=== PATIENT | female | born 1980 | race Caucasian/White ===

== ENCOUNTER 2017-02-26 01:45 | Observation (INO) | payer OTHER ==
[~2017-02-26] VITALS: Ht 172.7 cm; Wt 102.0 kg
[2017-02-26] VITALS (13 sets, daily range): BP systolic 93–128; BP diastolic 54–82; PULSE 62–111; RESP 12–21; O2SAT 92–100
--- NOTE | 2017-02-26 01:59 | ED.REPORT ---
HPI-Abd Pain F Under 40 Date of Service Feb 26, 2017 ED Provider: John Steen MD Patient is a healthy 36 year old female who presents to the ED complaining of RLQ abdominal pain onset 7pm this evening. The patient radiates to her periumbilical region. She reports associated nausea, vomiting 2x, and diarrhea. Her stools have unusually loose for the past week. The patient is not currently , as she is on her period. She denies fever, hematemesis, hematochezia, dysuria, urinary urgency, or increased urinary frequency. The patient has previously had a but any other previous abdominal surgeries. Patient denies having pain like this previously. Nursing Notes Stated Complaint: ABDOMINAL PAIN Chief Complaint: Female Abdominal Pain Nursing Notes Reviewed: Yes Allergies: Coded Allergies: No Known Allergies (Unverified , 02/26/17) General Time Seen by MD: 01:59 Chief Complaint Abdominal pain Hx Obtained From: Patient Arrived By: Walk-in Sudden in Onset?: Yes Onset Occurred: 5 - 8 hours ago Symptom Duration: Since onset Progression since Onset: Gradually worsening Location: : RLQ Quality: Painful Severity: Current: Moderate Severity: Maximum: Moderate Recent Healthcare: No recent doctor visit, No recent hospitalization Similar Sx Previous: No Past Medical History Past Medical History none Denies: Diabetes mellitus Past Surgical History Reports: Smoking History Unknown if Ever Smoker Social History Alcohol Use: "Social" Other Social History: Good social support, , Local resident Ambulatory Status Independent Review of Systems Constitutional: Denies: Chills, Fever GI: Reports: Abdominal pain, Diarrhea, Nausea, Vomiting, Denies: Bloody/tarry stool, Hematemesis, Hematochezia Female: Denies: Dysuria, Urinary frequency, Urinary urgency, Vaginal bleeding - abnl Complete sys rev & neg: except as marked. Physical Exam Initial Vital Signs Vital Signs (First) Date Time Temp Pulse Resp B/P Pulse Ox O2 Delivery O2 Flow Rate FiO2 02/26/17 01:46 36.9 98 14 123/80 100 Room Air Initial VS: Reviewed Head / Eyes: Atraumatic, Normocephalic, PERRL ENT: Mucous membranes moist, Conjunctiva normal, No scleral icterus Neck: Supple, Full range of motion Extremities: Vascular intact, Neuro intact, No swelling, No tenderness Skin: Warm, Dry, No cyanosis Neurologic: Alert, Oriented, Nonfocal Psychiatric: Mood/affect normal, Behavior normal, Normal thought content General/Constitutional: Awake, Alert, No acute distress, Well hydrated Respiratory / Chest: Breath sounds NL, Breath sounds = bilat, No respiratory distress, No rales, No rhonchi, No wheezing Cardiovascular: Heart rate NL, Regular rhythm, Heart sounds NL, No murmurs Abdomen: Soft, BS normoactive Tenderness/Guarding/Rebound: Positive: Tender RLQ... (quite tender and reactive to palpation) Back: No midline vertebral tend, No CVA tenderness Interpretation & Diagnostics Lab Results Interpretation Result Diagram: 02/26/17 0155 02/26/17 0155 Test 02/26/17 01:55 White Blood Count 13.9th/mm3 (3.8-10.1) Red Blood Count 4.72mil/mm3 (3.90-5.20) Hemoglobin 14.1g/dL (12.0-15.6) Hematocrit 42.2% (35.0-46.0) Mean Corpuscular Volume 89.4fL (81-100) Mean Corpuscular Hemoglobin 29.9pg (27.0-35.0) Mean Corpuscular Hemoglobin Concent 33.4% (32.0-37.0) Red Cell Distribution Width 13.0% (12.3-15.4) Platelet Count 213bil/L (150-400) Neutrophils (%) (Auto) 88.8% (40-74) Lymphocytes (%) (Auto) 6.1% (14-46) Monocytes (%) (Auto) 4.8% (4-12) Eosinophils (%) (Auto) 0% (0-5) Basophils (%) (Auto) 0.1% (0-3) Hold Purple Top Tube Received (Received) Prothrombin Time 10.4sec (8.1-12.5) Prothromb Time International Ratio 0.97ratio Hold Blue Top Tube Received (Received) Urine Color Yellow (YELLOW) Urine Appearance Cloudy (CLEAR,HAZY) Urine pH 6.5 (5.0-8.0) Urine Specific [place] 1.020 (1.003-1.035) Urine Protein Negativemg/dL (NEG,TRACE) Urine Glucose (UA) Negativemg/dL (NEGATIVE) Urine Ketones Negativemg/dL (NEGATIVE) Urine Occult Blood Small (NEGATIVE) Urine Nitrite Negative (NEGATIVE) Urine Bilirubin Negative (NEGATIVE) Urine Urobilinogen Normalmg/dL (NORMAL) Urine Leukocyte Esterase Negative (NEGATIVE) Urine RBC 0-2/hpf (0-2) Urine WBC 0-5/hpf (0-5) Urine Epithelial Cells Few/hpf (NONE-MOD) Urine Crystals Amorphous urates (NONE Urine Bacteria Few/hpf (NONE-FEW) Urine Hyaline Casts None/lpf (NONE) Urine Granular Casts None seen (NONE SEEN) Urine Waxy Casts None seen (NONE SEEN) Urine Red Blood Cell Casts None seen (NONE SEEN) Urine White Blood Cell Casts None seen (NONE SEEN) Urine Mucus Present (None Seen) Urine Trichomonas None seen (NONE SEEN) Urine Yeast None (NONE SEEN) Urinalysis Comment None Urine Culture Reflexed Not indicated Hold Urine Received (Received) Sodium Level 136mEq/L (134-144) Potassium Level 3.8mEq/L (3.5-5.2) Chloride Level 98mEq/L (97-108) Carbon Dioxide Level 22mmol/L (18-29) Blood Urea Nitrogen 14mg/dL (6-20) Creatinine 0.67mg/dL (0.57-1.00) Estimat Glomerular Filtration Rate 141mL/min (>59) Glucose Level 145mg/dL (60-99) Lactic Acid Level 1.1mmol/L (0.4-2.0) Calcium Level 10.9mg/dL (8.5-10.1) Total Bilirubin 0.4mg/dL (0.0-1.2) Aspartate Amino Transf (AST/SGOT) 19U/L (0-50) Alanine Aminotransferase (ALT/SGPT) 14U/L (0-32) Alkaline Phosphatase 80U/L (25-150) Total Protein 8.9g/dL (6.4-8.4) Albumin 4.4g/dL (3.4-5.0) Lipase 39U/L (13-60) Hold [place] Top Tube Received (Received) Hold [place] Top Tube Received (Received) CT Abd / Pelvis Interpretation CONCLUSION: Acute appendicitis. No abscess. Radiologist: Jesus Beavers MD 02/26/2017 - 3:29:03 AM PDT Study type: Abdominal CT IV contrast Interpretation / Wet Read by: Interpret - Radiologist, Tigist w radiologist Re-Eval/Medical Decision Med Decision/Clinical Course Med Decision/Clinical Course: 36-year-old female status post been no prior abdominal surgeries otherwise, presents with right lower quadrant pain for the past eight hours. She is quite tender in that area, and CT documents appendicitis with an appendicolith but no perforation and no abscess. Admitted now to the surgical service. IV Zosyn given. Transported in stable condition. Re-Evaluation/Progress : Time of Eval: 03:32 Patient Status: Condition improved Re-Evaluation/Progress Note: Rechecked the patient, who was informed that she has appendicitis. Patient states that her pain is improved and she declines additional pain medication. Patient will be admitted to the hospital for surgery. Patient understands and agrees with this plan. All questions were addressed. Consultation : Referral / Consult Name: Antione Cota MD Consulted With: Surgeon Call Returned at: 03:32 Director Mba: Will see patient, Agrees with eval, Agrees with plan, Accepts admit Note: Spoke with Dr. Cota, surgeon, who agrees to accept admit. Counseled Regarding: Diagnosis, Lab results, Need for admission Discharge & Departure Primary Impression: Acute appendicitis Acute appendicitis type: unspecified acute appendicitis type Qualified Code: K35.80 - Unspecified acute appendicitis Disposition: ADMITTED TO HOSPITAL Discharge Condition All VS Reviewed: Yes Condition: Stable Scribe Attestation Portions of this note were transcribed by Chinyere Jhaveri. I, Dr. Steen personally performed the history, physical exam and medical decision-making; I reviewed and confirmed the accuracy of the information in the transcribed note. Signed by: Jared Hartmann, 02/26/2017 0337 John Steen MD Feb 26, 2017 01:59 Chinyere Jhaveri Feb 26, 2017 02:07
[2017-02-26] MEDS ORDERED: 0.9% Sodium Chloride 1,000 ML IV ONE (02:06)
[2017-02-26] MEDS ORDERED: Ondansetron 2 mg/mL 2 mL Inj IVPUSH ONE (02:10)
[2017-02-26 02:13] LABS: BASOPHILS % (AUTO) 0.1 % (0-3); EOSINOPHILS % (AUTO) 0 % (0-5); MONOCYTES % (AUTO) 4.8 % (4-12); Mean Corpuscular Hemoglobin 29.9 pg (27.0-35.0); Mean Corpuscular Volume 89.4 fL (81-100); NEUTROPHILS % (AUTO) 88.8 % (40-74); Platelet Count 213 bil/L (150-400)
[2017-02-26 02:18] LABS: APPEARANCE,URINE CLOUDY (CLEAR,HAZY); COLOR,URINE YELLOW (YELLOW); OCCULT BLOOD,URINE SMALL (NEGATIVE); PH,URINE 6.5 (5.0-8.0); UROBILINOGEN,URINE NORMAL (NORMAL)
[2017-02-26 02:27] LABS: INR 0.97 ratio
[2017-02-26] MEDS ORDERED: Piperacillin-Tazo 3.375 Gm Inj 3.375 GM in Dextrose 5% Minibag Plus 50 ML IV ONE ×2 (03:30→11:00)
[2017-02-26] MEDS ORDERED: HYDROmorphone PCA 0.2 mg/mL 30 mL Inj IV PRN (03:40)
[2017-02-26] MEDS ORDERED: Ondansetron 2 mg/mL 2 mL Inj IVPUSH PRN ×4 (03:40→13:25)
[2017-02-26] MEDS ORDERED: Ketamine 10 mg/mL 20 mL Inj ONE (04:03)
[2017-02-26] MEDS ORDERED: fentaNYL-PF 50 mCg/mL 2 mL Inj ONE (04:03)
[2017-02-26] MEDS ORDERED: Dexamethasone 4 mg/mL Inj ONE (04:03)
[2017-02-26] MEDS ORDERED: Ondansetron 2 mg/mL 2 mL Inj ONE (04:03)
[2017-02-26] MEDS ORDERED: Propofol 10,000 mCg/mL 20 mL Inj ONE (04:03)
[2017-02-26] MEDS: Lactated Ringer's 1,000 ML IV SCH ×3 (04:15→18:48)
[2017-02-26] MEDS ORDERED: Influenza (Adult) Vaccine 0.5 mL Syringe IM ONE ×2 (07:00→15:55)
--- NOTE | 2017-02-26 07:53 | DRSVH ---
PROCEDURE: CT ABDOMEN AND PELVIS WITH CONTRAST ([id number]) INDICATIONS: rlq abdo pain TECHNIQUE: After the administration of oral and intravenous contrast, 5 mm thick sections acquired from the diap hragms to the symphysis. 5 mm thick coronal and sagittal reformats were performed. For radiation do se reduction, the following was used: automated exposure control, adjustment of mA and/or kV accordi ng to patient size. COMPARISON: None. FINDINGS: Image quality: Excellent. ABDOMEN: Lung bases: Lung bases are clear. Heart size is normal. Solid organs: Liver and spleen are normal in size and enhancement. Gallbladder is within normal joel its. Biliary system is non-dilated. Pancreas enhances normally. No adrenal nodules. Kidneys are n ormal in size and enhancement, without hydronephrosis. Peritoneum and bowel: A small hiatal hernia is present. Stomach, small bowel, and colon loops are no rmal in caliber and wall thickness. No free fluid or air. The appendix is distended and fluid-fille d and demonstrates mild surrounding fat stranding. A few small, less than 5 mm diameter high density foci within the appendiceal lumen are present. Nodes and vessels: No retroperitoneal or mesenteric adenopathy. Aorta and inferior vena cava are no rmal in caliber. Miscellaneous: No ventral hernias. PELVIS: Genitourinary: The urinary bladder is decompressed Miscellaneous: No inguinal hernias or adenopathy. Bones: No suspicious bony lesions. No vertebral body compression fractures. IMPRESSION: 1. Acute appendicitis. Small appendicoliths. 2. Findings were discussed with Dr. Steen by [facility] radiology services on 02.26.17 at 0329 hrs. 3. Concordant with preliminary interpretation. Dictated by: Adolfo Cavazos M.D. on 02/26/2017 at 7:50 Approved by: Adolfo Cavazos M.D. on 02/26/2017 at 7:51
--- NOTE | 2017-02-26 10:05 | PCM.HPANE ---
Patient Data Surgeon Admitting Provider:Antione Cota MD Attending Provider:Antione Cota MD Primary Care Physician:Katie Other Provider:Milvia Braningham Anesthesia Reason for Visit Acute Appendicitis Ht/WT & BMI Height (Feet): 5 Height (Inches): 8.00 Weight (Kilograms): 101.400 Body Mass Index 33.88 Allergies Coded Allergies: No Known Allergies (Unverified , 02/26/17) Past Anesthesia History Anesthesia History: Positive for:: Anesthesia Reactions (N/V, ? prolonged emergence), Denies:: Abnormal Airway, Difficult Intubation Diabetes History Hx Diabetes?: No Current Bedside Blood Glucose: 109 MRSA MRSA: No Medications Hypertension Medication: No Home Meds Incl Beta Rita: No Active Scripts oxyCODONE 5 Mg Tablet5 Mg PO Q4H PRN For Moderate Pain #15 TABLET Prov:Gene Monroe PA-C 02/27/17 History History of ENT Problems?: No HEENT History: Denies:: Abnormal Airway Difficult Intubation Hx of Heart Problems?: No Cardiovascular History: Denies:: Congestive Heart Failure Hypertension Hx of Respiratory Problem?: No Respiratory History: Denies:: Tuberculosis Neurological History: Positive for:: Headaches Hx of GI Problems?: No Other GI Pertinent History: Patient denies N/V Hx of Problems?: No Genitourinary History: Denies:: HX of Hemodialysis Kidney Stones Urinary Tract Infection HX of Peritoneal Dialysis: No Female Hx: Denies:: Currently Endometriosis Pelvic Inflammatory Problems with Breasts? Musculoskeletal History: Positive for:: Back Injury (current minor back injury ) Hx of Psycho/Social Problems?: No Hx Surgeries?: Yes (Tonsils) Other History: Positive for:: Hospitalization (Tonsils) Thyroid Disease History Blood Transfusions: Positive for:: Accept Blood Products? Denies:: Blood Transfuse Reaction Blood Transfusions Hx Diabetes: NoBedside Blood Glucose: 109 Hx Alcohol Use: NoHx Substance Use: No Smoking Status: Unknown if Ever Smoker Have You Smoked inLast 12 mo: No Stop/Bang Treated for Sleep Apnea?: No Do You Have a CPAP Machine?: No S-Snoring: Do You Snore Loudly: No T-Tired: feel tired, fatigued: No O-Obsered: Observed not breath: No P-Blood Pressure: treated: No B- Body Mass Index > 35 kg/m2: No A- Age over 50: No N- Neck Large Circumference: No G- Gender Male: No BRYAN Total Score: 0 BRYAN Risk Assessment: Low Risk, <3 Yes Risk Assessment Category Category 1A: Patient has history of documented sleep apnea, and HAS NOT received any narcotic, sedative or anesthesia administration during this stay. Category 1B: Patient has history of documented sleep apnea, and HAS received any narcotic , sedative or anesthesia administration during this stay Category 2: Patient has SUSPECTED Obstructive Sleep Apnea, and HAS received any narcotic , sedative or anesthesia administration during this stay. Category 3: Patient has SUSPECTED Obstructive Sleep Apnea and HAS NOT received narcotic, sedative or anesthesia administration during this stay. Category 4: Outpatient in Procedural Areas with known sleep apnea or who screen positive for High Risk via the STOP/BANG questionnaire. Exam Exam Vital Signs Vital Signs Date Time Temp Pulse Resp B/P Pulse Ox O2 Delivery O2 Flow Rate FiO2 02/26/17 06:55 16 94 02/26/17 06:19 36.4 98 18 125/75 98 Room Air 02/26/17 04:11 36.7 111 16 128/82 99 Room Air General Appearance: Alert, Oriented X3, Cooperative, No Acute Distress HEENT/AIRWAY: MP 2 Lungs: Clear to Auscultation, Normal Air Movement Heart: Exam Unremarkable, Regular Rate/Rhythm, No Murmurs/Rubs/Gallops Meds/Labs/Diagnostics Admission Meds Current Medications Sodium Chloride (Normal Saline) 1,000 ml @ 0 mls/hr Q0M ONCE IV Last administered on 02/26/17 02:33; Start 02/26/17 at 02:06; Stop 02/26/17 at 02:09; Status DC Ondansetron HCl (Zofran Inj) 8 mg ONCE ONCE IVPUSH Last administered on 02:34; Start 02/26/17 at 02:10; Stop 02/26/17 at 02:11; Status DC Ketorolac Tromethamine 30 mg 30 mg ONCE ONCE IVPUSH Last administered on 02:33; Start 02/26/17 at 02:10; Stop 02/26/17 at 02:11; Status DC Piperacillin Sod/ Tazobactam Sod 3.375 gm/Dextrose/ Water 50 ml @ 100 mls/hr ONCE ONCE IV Last administered on 02/26/17 03:45; Start 02/26/17 at 03:30; Stop 02/26/17 at 03:59; Status DC Lactated Ringer's (Lr) 1,000 ml @ 100 mls/hr Q10H IV Last administered on 04:15; Start 02/26/17 at 03:36 Bedside Blood Glucose: 109 Labs Test 02/26/17 01:55 White Blood Count 13.9th/mm3 (3.8-10.1) Red Blood Count 4.72mil/mm3 (3.90-5.20) Hemoglobin 14.1g/dL (12.0-15.6) Hematocrit 42.2% (35.0-46.0) Mean Corpuscular Volume 89.4fL (81-100) Mean Corpuscular Hemoglobin 29.9pg (27.0-35.0) Mean Corpuscular Hemoglobin Concent 33.4% (32.0-37.0) Red Cell Distribution Width 13.0% (12.3-15.4) Platelet Count 213bil/L (150-400) Neutrophils (%) (Auto) 88.8% (40-74) Lymphocytes (%) (Auto) 6.1% (14-46) Monocytes (%) (Auto) 4.8% (4-12) Eosinophils (%) (Auto) 0% (0-5) Basophils (%) (Auto) 0.1% (0-3) Hold Purple Top Tube Received (Received) Prothrombin Time 10.4sec (8.1-12.5) Prothromb Time International Ratio 0.97ratio Hold Blue Top Tube Received (Received) Urine Color Yellow (YELLOW) Urine Appearance Cloudy (CLEAR,HAZY) Urine pH 6.5 (5.0-8.0) Urine Specific [place] 1.020 (1.003-1.035) Urine Protein Negativemg/dL (NEG,TRACE) Urine Glucose (UA) Negativemg/dL (NEGATIVE) Urine Ketones Negativemg/dL (NEGATIVE) Urine Occult Blood Small (NEGATIVE) Urine Nitrite Negative (NEGATIVE) Urine Bilirubin Negative (NEGATIVE) Urine Urobilinogen Normalmg/dL (NORMAL) Urine Leukocyte Esterase Negative (NEGATIVE) Urine RBC 0-2/hpf (0-2) Urine WBC 0-5/hpf (0-5) Urine Epithelial Cells Few/hpf (NONE-MOD) Urine Crystals Amorphous urates (NONE Urine Bacteria Few/hpf (NONE-FEW) Urine Hyaline Casts None/lpf (NONE) Urine Granular Casts None seen (NONE SEEN) Urine Waxy Casts None seen (NONE SEEN) Urine Red Blood Cell Casts None seen (NONE SEEN) Urine White Blood Cell Casts None seen (NONE SEEN) Urine Mucus Present (None Seen) Urine Trichomonas None seen (NONE SEEN) Urine Yeast None (NONE SEEN) Urinalysis Comment None Urine Culture Reflexed Not indicated Hold Urine Received (Received) Sodium Level 136mEq/L (134-144) Potassium Level 3.8mEq/L (3.5-5.2) Chloride Level 98mEq/L (97-108) Carbon Dioxide Level 22mmol/L (18-29) Blood Urea Nitrogen 14mg/dL (6-20) Creatinine 0.67mg/dL (0.57-1.00) Estimat Glomerular Filtration Rate 141mL/min (>59) Glucose Level 145mg/dL (60-99) Lactic Acid Level 1.1mmol/L (0.4-2.0) Calcium Level 10.9mg/dL (8.5-10.1) Total Bilirubin 0.4mg/dL (0.0-1.2) Aspartate Amino Transf (AST/SGOT) 19U/L (0-50) Alanine Aminotransferase (ALT/SGPT) 14U/L (0-32) Alkaline Phosphatase 80U/L (25-150) Total Protein 8.9g/dL (6.4-8.4) Albumin 4.4g/dL (3.4-5.0) Lipase 39U/L (13-60) Hold [place] Top Tube Received (Received) Hold [place] Top Tube Received (Received) Plan Impression Patient chart reviewed, patient interviewed and anesthestic plan with risks, benefits, and alternatives discussed, and informed consent obtained. ASA Physical Status: ASA2 Mod Systemic Disease (Hx nausea and vomiting discussed and prolonged emergence; plan TIVA with patient consent) Anesthetic Plan: GA Bene/Risks/Altern/Consents: Yes HP Complete Prior to Induction: Yes Kenyon Duff MD Feb 26, 2017 10:05
[2017-02-26] MEDS ORDERED: HYDROmorphone 0.5 mg/0.5 mL iSecure Syringe ONE (11:34)
[2017-02-26] MEDS ORDERED: HYDROmorphone 0.5 mg/0.5 mL iSecure Syringe IVPUSH PRN (11:40)
[2017-02-26] MEDS ORDERED: Bupivacaine-MPF 0.5% W/EPI 30 mL Inj INJ ONE (12:21)
[2017-02-26] MEDS ORDERED: Lactated Ringer's 1,000 ML IV ONE (12:22)
[2017-02-26] MEDS ORDERED: diphenhydrAMINE 25 mg Capsule PO PRN (13:20)
[2017-02-26] MEDS ORDERED: Lactated Ringer's 500 ML IV PRN (13:22)
[2017-02-26] MEDS ORDERED: Lactated Ringer's 1,000 ML IV SCH (13:22)
[2017-02-26] MEDS ORDERED: Phenylephrine 10,000 mCg/mL Inj IVPUSH PRN (13:25)
[2017-02-26] MEDS ORDERED: HYDROmorphone 1 mg/mL Inj IVPUSH PRN (13:25)
[2017-02-26] MEDS ORDERED: fentaNYL-PF 50 mCg/mL 2 mL Inj IVPUSH PRN (13:25)
[2017-02-26] MEDS ORDERED: EPHEDrine Sulfate 50 mg/mL Inj IVPUSH PRN (13:25)
[2017-02-26] MEDS ORDERED: Dexamethasone 4 mg/mL Inj IVPUSH PRN (13:25)
[2017-02-26] MEDS ORDERED: MetoCLOpramide 5 mg/mL 2 mL Inj IVPUSH PRN (13:25)
[2017-02-26] MEDS: Acetaminophen IV 1,000 MG in IV Premix 1 EACH IV PRN (15:10)
--- NOTE | 2017-02-26 16:15 | HP ---
[address] [address] HISTORY AND PHYSICAL PATIENT: VIVIANE HOWARD : 1980 MR#: [id number] ADMIT: 02/26/2017 JOB ID: [id number] CHIEF COMPLAINT IDENTIFICATION: A 36-year-old female admitted to the Surgery service with probable appendicitis. HISTORY OF PRESENT ILLNESS: Onset of right lower quadrant pain, roughly at 6 p.m. night before, with some associated nausea and vomiting and loose stools. Menses started four days ago. [address] scan was consistent with appendicitis. PAST MEDICAL HISTORY: section. MEDICATIONS: None. ALLERGIES: None. SOCIAL HISTORY: , has a 1-1/2-year-old daughter at home and she is still breast-feeding, negative tobacco, negative daily alcohol. FAMILY HISTORY: Noncontributory. REVIEW OF SYSTEMS: A full review of systems negative. PHYSICAL EXAMINATION: BMI is recorded at 34. She is afebrile. Pulse is 98, blood pressure is 125/75. Her sclerae are clear. Neck is supple. Lungs are clear. Heart sounds are regular. Breasts are not examined. She has marked right lower quadrant tenderness to palpation. Rectal/pelvic is not performed. Extremities are without edema. LABORATORY DATA: White count is 13.9, hematocrit was 42. Chemistries are within normal limits. Glucose is 145. Lipase is 39. LFTs are normal. IMAGING: I have reviewed the report and the films and concur that she has findings consistent with appendicitis, no other significant pathology. IMPRESSION/PLAN: A 36-year-old, relatively healthy woman, almost certainly with appendicitis. She received a dose of Zosyn in the emergency department, and I will give her perioperative Zosyn within one hour of the incision. I have explained risks, benefits, and possible complications, and she agrees to proceed. She has asked about breast-feeding and I will defer that discussion regarding anesthetic to the anesthesiologist. Regarding any of the medications that she has received from me or during this hospitalization, should not interfere with her breast-feeding.
[2017-02-26] MEDS: Piperacillin-Tazo 3.375 Gm Inj 3.375 GM in Dextrose 5% Minibag Plus 50 ML IV SCH (18:40)
--- NOTE | 2017-02-26 18:51 | OP ---
[address] [address] OPERATIVE REPORT PATIENT: VIVIANE HOWARD : 1980 MR#: [id number] ADMIT: 02/26/2017 JOB ID: [id number] DATE OF SURGERY: 02/26/2017 PREOPERATIVE DIAGNOSIS(ES): Appendicitis. POSTOPERATIVE DIAGNOSIS(ES): Gangrenous appendicitis. PROCEDURE: Laparoscopic appendectomy. SURGEON: Antione Cota MD. INDICATIONS: A 36-year-old female with signs and symptoms consistent with appendicitis. FINDINGS: Acute appendicitis. PROCEDURE: The patient brought to the operating room. General anesthetic was administered. SCOAP protocol was followed. Surgical time-out was performed. She received perioperative Zosyn. We obtained access with a Veress needle. Three ports were placed. 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 The base of the appendix was soft. We took down the mesoappendix with cautery and a stapler and then used a stapler to finish off the main trunk of the appendiceal artery and take the appendix right at its base. Specimen was placed in a bag. Appendix was falling apart but we did not have controlled spillage of contents. The specimen was removed in a bag without wound contamination. We then performed appropriate irrigation. We suctioned out all of our irrigant and let our CO2 out. Wounds were closed with absorbable suture. At the time of this dictation, she is in recovery room. I will plan to keep her on 24 hours of intravenous antibiotics in the periop period, likely discharge her tomorrow.
[2017-02-27 00:42] VITALS: BP 99/65; PULSE 89; RESP 16; O2SAT 95
[2017-02-27] MEDS: Piperacillin-Tazo 3.375 Gm Inj 3.375 GM in Dextrose 5% Minibag Plus 50 ML IV SCH (02:11)
[2017-02-27] MEDS: Acetaminophen IV 1,000 MG in IV Premix 1 EACH IV PRN (03:26)
[2017-02-27 05:33] VITALS: BP 100/62; PULSE 69; RESP 16; O2SAT 97
[2017-02-27] MEDS ORDERED: Influenza (Adult) Vaccine 0.5 mL Syringe IM ONE (08:30)
[2017-02-27] MEDS: Lactated Ringer's 1,000 ML IV SCH (08:54)
--- NOTE | 2017-02-27 09:24 | PCM.PNSURG ---
Subjective Date of Service: Feb 27, 2017 Date of Service: Feb 27, 2017 Visit Information: Reason for Visit Acute Appendicitis Surgery/Surgery Date LAP APPY 02/26/17 Post-Op Day # Date of Admission: Feb 26, 2017 at 03:36 Hospital Day # Subjective: Ms.Nicole Banuelos is POD #1 appendectomy of gangrenous appendix. She was sitting in bed eating a breakfast sandwich. She is doing well today. She is ambulating without difficulty. She reports abdominal pain is 4/10 at its worst and 7/10 continued right shoulder pain since surgery yesterday and sharp pleuritic right lower rib pain. She reports increased belching today. She has not had a bowel movement but she is passing flatus. She denies nausea, vomiting, fever, chills , chest pain, shortness of breath, lower extremity pain or swelling. Objective Objective Laparoscopic sites healing well with no signs of infection. Vital Sign- Last 8 Hours Date Time Temp Pulse Resp B/P Pulse Ox O2 Delivery O2 Flow Rate FiO2 02/27/17 05:33 36.4 69 16 100/62 97 Room Air Intake and Output- Last 8 Hour 02/27/17 Cumulative From/Thru 07:00 02/26/17 01:46 - 02/27/17 06:13 Intake Total 2300 ml 5662 ml Output Total 450 ml 2100 ml Balance 1850 ml 3562 ml Intake Oral 1200 ml 2200 ml IV Total 1100 ml 3462 ml Output Urine Total 450 ml 2100 ml # Voids 1 2 # Bowel Movements 0 0 General: Alert, Oriented X3, No Acute Distress Abdomen: Soft, Appropriately tender, Normoactive bowel tones Result Diagram: 02/26/17 0155 02/26/17 0155 Assessment & Plan Impression Continued normal post appendectomy management. No changes to plan. Problems: Plan Patient has increased belching today but she is passing flatus. Continue to encourage up and out of bed with ambulation in halls. Continue full diet. Continue to monitor for nausea, vomiting, fever, chills. I I suspect patient will be ready for discharge today. JJ MARTINES DO Feb 27, 2017 08:48 JJ MARTINES DO Feb 27, 2017 08:48
[2017-02-27 10:58] VITALS: BP 110/72; PULSE 77; RESP 17; O2SAT 99
--- NOTE | 2017-02-27 13:13 | PCM.PNSURG ---
Subjective Date of Service: Feb 27, 2017 Visit Information: Reason for Visit Acute Appendicitis Surgery/Surgery Date LAP APPY 02/26/17 Post-Op Day #1 Date of Admission: Feb 26, 2017 at 03:36 Hospital Day # Subjective: Drinking liquids with no nausea or vomiting. Passing flatus but has not had a bowel movement. She complains of right shoulder pain, otherwise abdominal pain is well-controlled with oral analgesic. Ambulating in the hallway without assistance. Postop General: Other (as above) Gastrointestinal: Good Appetite, Tolerating Oral Feedings, No N/V, Passing Flatus Pain Management: PO Postop Activity: Ambulating Independently Objective Vital Sign- Last 8 Hours Date Time Temp Pulse Resp B/P Pulse Ox O2 Delivery O2 Flow Rate FiO2 02/27/17 10:58 36.8 77 17 110/72 99 Room Air 02/27/17 05:33 36.4 69 16 100/62 97 Room Air Intake and Output- Last 8 Hour 02/27/17 Cumulative From/Thru 07:00 02/26/17 01:46 - 02/27/17 06:13 Intake Total 2300 ml 5662 ml Output Total 450 ml 2100 ml Balance 1850 ml 3562 ml Intake Oral 1200 ml 2200 ml IV Total 1100 ml 3462 ml Output Urine Total 450 ml 2100 ml # Voids 1 2 # Bowel Movements 0 0 General: Alert, Cooperative, No Acute Distress Lungs: Clear to Auscultation Heart: Regular Rate/Rhythm Abdomen: Soft, Non-tender, Non-distended, Protuberant SURGICAL WOUND : Wound General Appearence: No Erythema, Wound under dressing Extremities: Thigh&Calf Soft/Nontender Neuro: Normal Speech Catheters: None Result Diagram: 02/26/17 0155 02/26/17 0155 Assessment & Plan Impression Gangrenous appendicitis. POD #1, stable for discharge. Problems: Plan The patient will be discharged to home. She states that she is leaving on a trip to [place] on the returning on the . She will follow-up in the office on the . She is cautioned to call or return for: Temperature greater than 101 that does not resolve with oral Tylenol, increasing abdominal pain, or nausea and vomiting. Or, signs of wound infection such as redness, tenderness to touch, pus discharge, or warmth. Pain Management: Oxycodone VTE Prophylaxis: SCDs Resuscitation Status: CPR: Attempt Resuscitation Renco,Gene H PA-C Feb 27, 2017 13:13
--- NOTE | 2017-02-27 13:15 | PCM.DISURG ---
Surgical Discharge Instruction Date of Service Feb 27, 2017 Dates of Hospitalization Date of Hospital Admission Feb 26, 2017 at 03:36 Providers Admitting Physician: Antione Cota MD Primary Care Physician: Noparthur Attending Physician: Antione Cota MD Discharge Diagnosis Discharge Diagnosis Gangrenous appendicitis Post Operative diagnosis Same Diet Discharge Diet: No restrictions Activity Discharge Activity-General: Balance rest and activity, No driving while taking narcotic Dressing and Incisional Care Dressing Care: Allow Steri Stripes to fall off, Remove outer dressing after 24 hrs Hygiene: May shower Follow Up Plan Mid-level Provider (F9): Gene Monroe PA-C Follow-up appointment: Date (03/21/2017) Call your provider for: Fever (greater than 101 that does not resolve with oral Tylenol), Chills, Increasing abdominal pain, Nausea, Vomiting, Wound redness, Increasing wound pain, Warmth to touch, Discharge @ incision, pus discharge Gene Monroe PA-C Feb 27, 2017 13:15
[2017-02-27] MEDS ORDERED: OXYC5TAB72 PO (13:16)
--- NOTE | 2017-02-27 13:19 | PCM.DC.SUR ---
Discharge Summary Date of Service: Feb 27, 2017 Date of Hospital Admission: Feb 26, 2017 at 03:36 Date of Operation(s): 02/26/2017 Date of Discharge: 02/27/2017 Diagnosis at Time of Discharge Gangrenous appendicitis Problems: Operation Laparoscopic appendectomy Brief History and Physical: The patient is a 36-year-old female who had onset of right lower quadrant pain, roughly at 6 p.m. the night before admission, with some associated nausea and vomiting and loose stools. Menses started four days prior to admission. CT scan was consistent with appendicitis. Consultants: None Hospital Course: The patient was admitted and underwent the above-mentioned operation without complication. She was stable for discharge the following day. Pathology: Pending Disposition: The patient was discharged to home on her first postsurgical day. She was experiencing right shoulder pain but was otherwise comfortable with oral analgesic. At the time of discharge she was drinking liquids with no nausea or vomiting, she was passing flatus but had not had a bowel movement, her wounds were intact, and she was ambulating without assistance. Follow-up Plan: She will follow-up in the office with Gene Monroe PA-C on 03/21/2017 oxyCODONE (oxyCODONE) 5 Mg Tablet 5 MG PO Q4H PRN PRN For Moderate Pain Gene Monroe PA-C Feb 27, 2017 13:19
--- NOTE | 2017-02-27 13:59 | PCM.ANEP1 ---
Post Anesthesia Phase 1 PACU Phase 1 Assessment Date of Service: Feb 27, 2017 Vital Signs Vital Signs Date Time Temp Pulse Resp B/P Pulse Ox O2 Delivery O2 Flow Rate FiO2 02/27/17 10:58 36.8 77 17 110/72 99 Room Air Level of Alertness: Awake, talking SHAH's with Equal Strength: Yes Pain: Yes Pain Scale Score: 6 Nausea or Vomiting: No Oxygen Delivery: Simple Mask Lungs: Clear to Auscultation Dermatome Level: Full Sensation Kenyon Duff MD Feb 27, 2017 13:59
--- NOTE | 2017-02-27 14:00 | PCM.ANEP2 ---
Post Anesthesia Evaluation ASA/CMS Post Anesthesia VS in Patient's Normal Range?: Yes Resp Stable; Airway Patent?: Yes CV Function & Hydration Stable: Yes Mental Status Recovered?: Yes Pain control Satisfactory?: Yes N/V Control Satisfactory?: Yes Kenyon Duff MD Feb 27, 2017 14:00
--- NOTE | 2017-03-07 15:52 | PATH ---
SURGICAL PATHOLOGY Attending Physician:Antione Cota MD CASE STATUS: Signed Out * Amended * PATIENT NAME: VIVIANE HOWARD PID: [id number] : 1980 DATE COLLECTED:02/26/2017 00:00 SPECIMEN: Appendix CLINICAL HISTORY: APPENDICITIS 1). APPENDIX FINAL DIAGNOSIS: Appendix, Laparoscopic Appendectomy: Acute appendicitis and serositis. ICD10 K35.80 This case was reviewed and interpreted by Dr. Niyah Torre. The final diagnosis is unchanged. This amendment is issued in order for the report to cross the interface and be available in the hospital electronic medical record. GROSS DESCRIPTION: The specimen is received in one formalin filled container labeled with the patient's name, sublabeled "appendix" and consists of one cylindrical sneed appendix measuring 8.0 x 1.0 x 1.0 CM. The serosal surface is dark brown, smooth and glistening. There is a large amount of attached fatty tissue. Section reveals the wall to be thickened to approximately 0.2 CM. The lumen contains a dark brown friable material. 4 hotel services sales representative sections are submitted in one cassette. 02/27/2017 [facility] ICD-9 CODES: CPT CODES: 1: 47991 AMENDMENT(S): Amended: 03/07/2017 by Virginia Caro Reason:Miscellaneous The final diagnosis is unchanged. This amendment is issued in order for the report to cross the interface and be available in the hospital electronic medical record. Previous Signout Date: 03/01/2017 Electronically Signed Out Amalia Liao MD [facility] Pathology [facility] [address], [place] [address] Technical component performed at [facility], [address] [place] [address] Ave[address], [place], [address]
== END 2017-02-27 14:06 | disposition home or self-care (01) ==
LOC: SED 01:45 → OSC 03:36
PROVIDERS: ADMIT Surgery; ATTEND Surgery
PROC: 0DTJ4ZZ Resection of Appendix, Percutaneous Endoscopic Approach (ICD-10-PCS; principal; 2017-02-26 11:00)
DX: K35.80 Unspecified acute appendicitis (principal)
CPT/HCPCS: 36415; 44970; 74177; 80053; 81000; 81025; 83605; 83690; 85025; 85610; 96361; 96374; 96375; 99285; G0378; J0131; J1100; J1170; J1885; J2175; J2405; J2543; J3010; J7030; J7120; Q9967